=== PATIENT | female | born 1960 | race African-American/Black ===

== ENCOUNTER 2017-12-25 13:43 | Emergency (ER) | payer BC ==
[~2017-12-25] VITALS: Ht 167.6 cm; Wt 77.0 kg
[~2017-12-25 13:43] MED LIST: ACET1TAB12; CEPH250C2
[2017-12-25] MEDS ORDERED: SODIUM CHLORIDE 0.9% 1,000 ML IV ONE (14:20)
[2017-12-25 15:09] LABS: HEMATOCRIT. 36.5 % (36.0-48.0); HEMOGLOBIN. 12.2 g/dL (12.0-16.0); MEAN CORPUSCULAR HEMOGLOBIN 29.7 pg (28.0-32.0); MEAN CORPUSCULAR VOLUME 88.7 fL (81.0-99.0); MEAN PLATELET VOLUME 8.5 fl (7.4-10.4); PLATELET 218 x1000/uL (130-400); RED BLOOD CELL COUNT 4.11 mill/uL (4.2-5.4); RED CELL DISTRIBUTION WIDTH 12.9 % (11.6-14.6)
[2017-12-25 15:12] LABS: CHLORIDE 107 mEq/L (98-107)
[2017-12-25 15:32] LABS: CLARITY URINE CLEAR (CLEAR); COLOR URINE YELLOW (YELLOW); KETONES URINE NEGATIVE (NEGATIVE); LEUKOCYTE ESTERASE URINE TRACE (NEGATIVE); NITRITE URINE NEGATIVE (NEGATIVE); OCCULT BLOOD URINE TRACE (NEGATIVE); PH URINE 5.5 (4.5-8.0); PROTEIN URINE NEGATIVE (NEGATIVE); SPECIFIC GRAVITY URINE 1.015 (1.005-1.030); UROBILINOGEN URINE 0.2 E.U./dL (0.2-1.0)
[2017-12-25 15:44] LABS: *AMPHETAMINES SCREEN URINE NEGATIVE (NEGATIVE); *BARBITURATES SCREEN URINE NEGATIVE (NEGATIVE)
[2017-12-25 15:45] LABS: *BENZODIAZEPINES SCREEN URINE NEGATIVE (NEGATIVE); *COCAINE SCREEN URINE NEGATIVE (NEGATIVE); CANNABINOID URINE SCREEN NEGATIVE (NEGATIVE); OPIATES URINE SCREEN NEGATIVE (NEGATIVE); PHENCYCLIDINE URINE SCREEN NEGATIVE (NEGATIVE)
[2017-12-25 15:47] LABS: METHADONE URINE SCREEN NEGATIVE (NEGATIVE)
[2017-12-25 16:23] VITALS: BP 135/86
[2017-12-25 17:44] LABS: PLATELET ESTIMATE NORMAL
== END 2017-12-25 16:22 | disposition home or self-care (01) ==
LOC: ER 13:43
DX: N30.10 Interstitial cystitis (chronic) without hematuria (principal); H53.8 Other visual disturbances; E83.51 Hypocalcemia; R74.8 Abnormal levels of other serum enzymes
CPT/HCPCS: 36415; 71045; 80053; 80305; 81003; 85025; 99285; J7030